=== PATIENT | male | born 1975 | race Caucasian/White ===

== ENCOUNTER → 2022-07-04 | Day surgery (SDC) | payer OTHER ==
[2022-06-30 11:04] VITALS: BMI 39.5
== END ==
LOC: JASU-SURG 04:19
PROVIDERS: ATTEND Urology

== ENCOUNTER 2022-08-15 04:13 | Day surgery (SDC) | payer OTHER ==
[2022-08-10 15:12] VITALS: BMI 39.5
[2022-08-15] MEDS ORDERED: MIDAZOLAM HCL 2 MG/2 ML SINGLE DOSE VIAL ONE (14:33)
[2022-08-15 15:38] VITALS: BP 144/71; PULSE 74; RESP 16; TEMP 97.4
== END 2022-08-15 16:10 | disposition home or self-care (01) ==
LOC: JASU-SURG 04:13
PROVIDERS: ATTEND Urology
PROC: 0TF3XZZ Fragmentation in Right Kidney Pelvis, External Approach (ICD-10-PCS; principal; 2022-08-15 13:30)
DX: N20.0 Calculus of kidney (principal)